=== PATIENT | female | born 1970 | race Caucasian/White ===

== ENCOUNTER 2021-07-23 10:11 | Emergency (ER) | payer SELFPAY ==
[2021-07-23 11:08] LABS: HEMOGLOBIN 13.9 gm/dl (12.3-15.3); RED BLOOD COUNT 4.67 M/UL (4.00-5.10); WHITE BLOOD COUNT 7.8 K/UL (4.5-11.0)
[2021-07-23 11:24] LABS: BUN/CREATININE RATIO 24 (0-10)
[2021-07-23] MEDS ORDERED: CEPHALEXIN500 M1 PO (13:23)
[2021-07-23] MEDS ORDERED: NAPROXEN500 MG PO (13:25)
== END 2021-07-23 13:36 | disposition home or self-care (01) ==
LOC: ER1 10:11
PROVIDERS: Student in an Organized Health Care Education/Training Program
DX: N64.4 Mastodynia (principal)
CPT/HCPCS: 76642-LT; 80048; 85025; 99284